=== PATIENT | male | born 1975 | race Caucasian/White ===

== ENCOUNTER 2025-07-03 19:33 | Emergency (ER) | payer SELFPAY ==
[~2025-07-03] VITALS: Ht 162.6 cm; Wt 63.2 kg
[2025-07-03 19:41] VITALS: O2SAT 98
[2025-07-03] MEDS ORDERED: BO1 TP (22:03)
[2025-07-03] MEDS ORDERED: ACET-2708 MT (22:03)
[2025-07-03] MEDS: BACITRACIN ZINC OINT UDPKT TOP ONE (22:37)
[2025-07-03] MEDS: ACETAMINOPHEN 325MG TABLET PO ONE (22:45)
[2025-07-03] MEDS: KETOROLAC 30MG/ML VIAL IM ONE (23:08)
[2025-07-03 23:11] VITALS: BP 134/91; PULSE 100; RESP 19; TEMP 36.9; O2SAT 98
== END 2025-07-03 23:15 | disposition home or self-care (01) ==
LOC: ER 19:33
DX: S02.2XXA Fracture of nasal bones, initial encounter for closed fracture (principal); X58.XXXA Exposure to other specified factors, initial encounter; Y93.89 Activity, other specified; Y92.89 Other specified places as the place of occurrence of the external cause; Y99.8 Other external cause status
CPT/HCPCS: 99285; 70450; 70486; 72125; 96372; J1885